=== PATIENT | male | born 1935 | race Caucasian/White ===

== ENCOUNTER 2016-10-17 19:50 | Emergency (ER) | payer MEDICARE ==
[~2016-10-17] VITALS: Ht 162.6 cm; Wt 75.0 kg
[2016-10-17 20:16] VITALS: BP 171/103; PULSE 67; RESP 20; TEMP 99.2; O2SAT 95
[2016-10-17 22:45] LABS: BLOOD, URINE TRACE (NEG); GLUCOSE,URINE NEG (NEG); KETONE, URINE NEG (NEG); NITRITE,URINE NEG (NEG)
[2016-10-17 22:46] LABS: URINE COLOR YELLOW (YELLW/STRAW)
[2016-10-17 22:49] LABS: COMMENT (UR) CULT NOT INDICATED; CULTURE IF INDICATED CULT NOT INDICATED; RBC, URINE 0-3 /hpf (0-3); SQUAMOUS EPITHELIAL CELL URINE 0-5 /hpf (0-5); WBC, URINE 0-2 /hpf (0-5)
--- NOTE | 2016-10-17 23:22 | RADHPO ---
EXAM DATE/TIME: 10/17/2016 22:39 [facility] COMPARISON: No previous studies available for comparison. INDICATIONS : Trauma. Fall. Neck pain. RADIATION DOSE: 26.50 CTDIvol (mGy) MEDICAL HISTORY : None SURGICAL HISTORY : None. ENCOUNTER: Initial ACUITY: 1 day PAIN SCALE: 4/10 LOCATION: Bilateral neck TECHNIQUE: Volumetric scanning of the cervical spine was performed. Multiplanar reconstructions in the sagittal, coronal and oblique axial planes were performed. Using automated exposure control and adjustment o f the mA and/or kV according to patient size, radiation dose was kept as low as reasonably achievable to obtain optimal diagnostic quality images. FINDINGS: Sagittal and coronal reconstruction show multilevel degenerative disc disease with loss of disc heigh t just about every cervical level, most severe from C4-5 through C7-T1 with [id number]-[id number] articulation at C6-7. Associated uncovertebral ridging most prominent anteriorly at C4-5 and C5-6. Moderate grad e 1 anterolisthesis of C3 on C4 and C7 on T1 probably due to facet degeneration. Despite degenerative changes, the spinal canal is adequate with some uncovertebral ridging at C4-5 encroaching on the int ervertebral space. No acute fracture. Detailed axial images as follows: . C2-C3: Right facet hypertrophy. Spinal canal and neural foramina are patent. C3-C4: Bilateral facet hypertrophy. Spinal canal and neural foramina are patent. C4-C5: Uncovertebral ridging with a right central/paramidline spur encroaching on the anterior epidural spac e. Spinal canal and neural foramina remain patent C5-C6: Uncovertebral ridging the spinal canal and neural foramina are adequate C6-C7: Uncovertebral ridging but the spinal canal and neural foramina remain adequate C7-T1: The bony spinal canal is normal in size. No evidence of disc bulge or herniation. The neural forami na are bilaterally patent. CONCLUSION: 1. Multilevel degenerative disc disease with loss of disc height and free cervical level. This is mos t severe from C4-5 inferiorly with ohhi-wa-cjmn articulation at C6-7.2. Grade 1 anterolisthesis of C3 on 4 and C7 on T1 probably due to facet degeneration. 3. Despite the degenerative disc disease and multilevel facet hypertrophy, the spinal canal and neura l foramina appeared adequate at all cervical levels with a central/right paracentral disc spur at C4- 5 encroaching on the anterior epidural space. 4. No fracture Andres Ncihole MD on October 17, 2016 at 23:12 Board Certified Radiologist. This report was verified electronically.
--- NOTE | 2016-10-17 23:24 | RADHPO ---
EXAM DATE/TIME: 10/17/2016 22:39 [facility] COMPARISON: No previous studies available for comparison. INDICATIONS : Trauma. Fall. Laceration back of head. RADIATION DOSE: 57.97 CTDIvol (mGy) MEDICAL HISTORY : None SURGICAL HISTORY : Ear implants. ENCOUNTER: Initial ACUITY: 1 day PAIN SCALE: 4/10 LOCATION: occipital TECHNIQUE: Multiple contiguous axial images were obtained of the head. Using automated exposure control and adj ustment of the mA and/or kV according to patient size, radiation dose was kept as low as reasonably a chievable to obtain optimal diagnostic quality images. FINDINGS: CEREBRUM: The ventricles are normal for age. Anatomic detail in the posterior temporal and parietal lobes is s omewhat limited due to the morning artifact from the bilateral cochlear implants. No evidence of mid line shift, mass lesion, hemorrhage or acute infarction. No extra-axial fluid collections are seen. POSTERIOR FOSSA: The cerebellum and brainstem are intact. The 4th ventricle is midline. The cerebellopontine angle i s unremarkable. EXTRACRANIAL: The visualized portion of the orbits is intact. SKULL: The calvaria is intact. No evidence of skull fracture. There appear to be bilateral cochlear implant s. CONCLUSION: 1. Bilateral cochlear implants do produce some beam hardening artifact in the posterior temporal and parietal lobes. 2. Otherwise, nothing acute Andres Nichole MD on October 17, 2016 at 23:21 Board Certified Radiologist. This report was verified electronically.
--- NOTE | 2016-10-17 23:30 | RADHPO ---
EXAM DATE/TIME: 10/17/2016 22:39 [facility] COMPARISON: No previous studies available for comparison. INDICATIONS : Trauma. Fall. RADIATION DOSE: 25.62 CTDIvol (mGy) MEDICAL HISTORY : None SURGICAL HISTORY : Ear implants. ENCOUNTER: Initial ACUITY: 1 day PAIN SCORE: 4/10 LOCATION: Bilateral facial TECHNIQUE: Volumetric scanning of the facial bones was performed. Using automated exposure control and adjustme nt of the mA and/or kV according to patient size, radiation dose was kept as low as reasonably achiev able to obtain optimal diagnostic quality images. FINDINGS: ORBITS: The orbital and infraorbital osseous structures are intact. The retroconal structures have a normal configuration. No radiopaque foreign bodies are seen. NASAL BONE: The nasal bone and maxillary spine are intact ZYGOMATIC ARCHES: Symmetric without evidence of fracture. SINUSES: Minimal mucoperiosteal thickening along the inferior aspect of both maxillary antra. NASAL CAVITY: The nasal septum is intact and midline. The lacrimal ducts are intact. SOFT TISSUES: No radiopaque foreign bodies seen. No soft-tissue swelling is seen. INTRACRANIAL: No intracranial air seen. CRIBIFORM PLATE: Grossly intact. CONCLUSION: 1. Minimal chronic sinus disease in the inferior aspect of both maxillary antra. 2. No acute osseous injury. Andres Nichole MD on October 17, 2016 at 23:27 Board Certified Radiologist. This report was verified electronically.
--- NOTE | 2016-10-17 23:55 | PD ---
HPI Chief Complaint: Fall Time Seen by Provider: 22:18 Travel History International Travel<30 days: No Contact w/Intl Traveler<30days: No Traveled to known affect area: No History of Present Illness HPI 81-year-old male presents to the emergency department by private transportation after falling while stepping out of his friend's semi-truck tractor-trailer. Patient was climbing out of the tractor-trailer off of 2 steps when he lost his balance and fell backwards. Patient did to his head. No witnessed loss of consciousness the patient appeared dazed and had transient amnesia of the event where he had to be informed that he was and [place]. Patient also contused his face. Patient denies headache at this time is aware if he is wary is what happened and how it happened he recalls climbing down off the truck and losing his balance and falling and recalls that he dislodged one of his cochlear implants and has been his self since the event. Patient sustained abrasion to the nose and abrasion to the left lower leg and a contusion to the posterior scalp. This was a witnessed event. Friend who was with him is at the bedside. Patient does not take any blood thinning agents. Patient denies any headache visual disturbance neck pain back pain chest pain rib pain abdominal pain pelvic pain upper or lower extremity pain. Patient's had no numbness tingling or weakness in the arms or legs no ataxia of gait. There is been no nausea no vomiting. PFSH Past Medical History Narrative Medical Cochlear implants; no tobacco use; nursing notes reviewed Medical History: Denies Significant Hx Diminished Hearing: No Tetanus Vaccination: Unknown Influenza Vaccination: No ?: Not Past Surgical History Surgical History: No Previous Surgery Social History Alcohol Use: Yes (OCC) Tobacco Use: No Substance Use: No Allergies-Medications (Allergen,Severity, Reaction): Coded Allergies: No Known Allergies (Unverified , 10/17/16) Narrative Medication Denies medications; no blood thinning agents. Review of Systems Except as stated in HPI: all other systems reviewed are Neg General / Constitutional: No: Fever, Chills Eyes: No: Visual changes HENT: No: Headaches, Neck Pain Cardiovascular: No: Chest Pain or Discomfort Respiratory: No: Shortness of Breath Gastrointestinal: No: Nausea, Vomiting, Abdominal Pain Genitourinary: No: Flank Pain Musculoskeletal: No: Myalgias, Arthralgias Skin: No Rash Neurologic: Positive: Change in Mentation (transient amnesia), No: Weakness, Dizziness, Syncope, Focal Abnormalities, Coordination Problem, Ataxia, Headache , Slurred Speech, Paresthesia, Incontinence, Seizures, Sensory Disturbance Psychiatric: No: Anxiety, Depression Endocrine: No: Heat Intolerance Hematologic/Lymphatic: No: Easy Bruising Physical Exam Narrative GENERAL: Well-developed well-nourished male in no acute distress no respiratory distress SKIN: Warm and dry. HEAD: Atraumatic. Normocephalic. Scalp soft tissue swelling superficial abrasion no laceration no puncture wound no bony abnormality EYES: Pupils equal and round. Extraocular muscles intact. No scleral icterus. No injection or drainage. ENT: No nasal bleeding or discharge. Mucous membranes pink and moist. NECK: Trachea midline. No JVD. No midline tenderness to direct palpation along the cervical spine no bony step-off. CARDIOVASCULAR: Regular rate and rhythm. Chest wall: Nontender to direct palpation no ecchymosis no abrasion no bony tenderness or crepitus RESPIRATORY: No accessory muscle use. Clear to auscultation. Breath sounds equal bilaterally. GASTROINTESTINAL: Abdomen soft, non-tender, nondistended. Hepatic and splenic margins not palpable. MUSCULOSKELETAL: Extremities without clubbing, cyanosis, or edema. No obvious deformities. NEUROLOGICAL: Awake and alert. No obvious cranial nerve deficits. Motor grossly within normal limits. Five out of 5 muscle strength in the arms and legs. No pronator drift. No limb ataxia. Sensory exam intact. Normal speech. PSYCHIATRIC: Appropriate mood and affect; insight and judgment normal. Data Data Last Documented VS Vital Signs Date Time Temp Pulse Resp B/P Pulse Ox O2 Delivery O2 Flow Rate FiO2 10/18/16 00:15 18 95 Room Air 10/18/16 00:15 97.9 62 160/[address] Brain W/O Iv Contrast(Rout) (10/17/16 ) Ct Cerv Spine W/O Contrast (10/17/16 ) Ct Facial Bones W/O Iv Cont (10/17/16 ) Urinalysis - C+S If Indicated (10/17/16 22:18) Wound Care (10/17/16 22:18) Ice / Cold Pack PRN (10/17/16 22:18) Tetanus/Diphtheria Tox Adult (Tetanus/Di (10/18/16 00:00) Acetaminophen (Tylenol) (10/18/16 00:00) Labs Laboratory Tests Test 10/17/16 22:30 Urine Color YELLOW Urine Turbidity CLEAR Urine pH 6.0 Urine Specific [place] 1.019 Urine Protein NEG mg/dL Urine Glucose (UA) NEG mg/dL Urine Ketones NEG mg/dL Urine Occult Blood TRACE Urine Nitrite NEG Urine Bilirubin NEG Urine Leukocyte Esterase NEG Urine RBC 0-3 /hpf Urine WBC 0-2 /hpf Urine Squamous Epithelial 0-5 /hpf Cells Microscopic Urinalysis Comment CULT NOT INDICATED MDM Medical Decision Making Medical Screen Exam Complete: Yes Emergency Medical Condition: Yes Medical Record Reviewed: Yes Interpretation(s) Last Impressions Maxillofacial CT 10/17/16 0000 Signed Impressions: Service Date/Time: Monday, October 17, 2016 22:39 - CONCLUSION: 1. Minimal chronic sinus disease in the inferior aspect of both maxillary antra. 2. No acute osseous injury. Andres Nichole MD Head CT 10/17/16 0000 Signed Impressions: Service Date/Time: Monday, October 17, 2016 22:39 - CONCLUSION: 1. Bilateral cochlear implants do produce some beam hardening artifact in the posterior temporal and parietal lobes. 2. Otherwise, nothing acute Andres Nichole MD Cervical Spine CT 10/17/16 0000 Signed Impressions: Service Date/Time: Monday, October 17, 2016 22:39 - CONCLUSION: 1. Multilevel degenerative disc disease with loss of disc height and free cervical level. This is most severe from C4-5 inferiorly with [id number]-evfv articulation at C6-7. 2. Grade 1 anterolisthesis of C3 on 4 and C7 on T1 probably due to facet degeneration. 3. Despite the degenerative disc disease and multilevel facet hypertrophy, the spinal canal and neural foramina appeared adequate at all cervical levels with a central/right paracentral disc spur at C4-5 encroaching on the anterior epidural space. 4. No fracture Andres Nichole MD Differential Diagnosis Minor closed head injury, skull fracture, and cranial bleed, abrasion, contusion , fracturefacialcervical spine, cord compression Narrative Course Imaging studies ordered ice pack applied wounds cleansed Tetanus status updated Imaging studies revealed no acute abnormality chronic changes are noted GCS remains 15 patient is stable for outpatient management Diagnosis Primary Impression: Closed head injury with concussion Qualified Code: S06.0X0A - Closed head injury with concussion, without loss of consciousness, initial encounter Additional Impressions: Contusion of scalp, initial encounter Facial contusion Qualified Code: S00.83XA - Facial contusion, initial encounter Leg abrasion Qualified Code: S80.812A - Leg abrasion, left, initial encounter Referrals: Primary Care Physician 2 days Patient Instructions: General Instructions Additional Instructions: Keep abrasions clean and dry follow wound care directions Follow head injury precautions 24 hours May use acetaminophen/Tylenol as needed for discomfort or for fever 100.4F or greater May use ibuprofen/Advil/Motrin per package directions every 6-8 hours as needed for pain associated inflammation for fever 100.4F or greater Use ice intermittently for first 12-24 hours to areas of soft tissue swelling Return to the emergency department for any concerns or change in condition No contact sports/activities or motorcycle riding for greater than 5 days or until evaluated and cleared by your primary care provider Med/Other Pt SpecificInfo: Prescription(s) given Disposition: 01 DISCHARGE HOME Condition: Stable Evelyn Rosas MD Oct 17, 2016 23:55
[2016-10-18] MEDS ORDERED: TETANUS/DIPHTHERIA TOXOID ADULT 0.5 ML VIAL IM ONE
[2016-10-18] MEDS ORDERED: ACETAMINOPHEN 325 MG TAB PO ONE
[2016-10-18 00:15] VITALS: BP 160/78; PULSE 62; RESP 18; TEMP 97.9; O2SAT 95
== END 2016-10-18 00:55 | disposition home or self-care (01) ==
LOC: PHED 19:50
DX: S06.0X0A Concussion without loss of consciousness, initial encounter (principal); S09.90XA Unspecified injury of head, initial encounter; S80.819A Abrasion, unspecified lower leg, initial encounter; S00.83XA Contusion of other part of head, initial encounter; S00.03XA Contusion of scalp, initial encounter; W17.89XA Other fall from one level to another, initial encounter; V68.4XXA Person boarding or alighting a heavy transport vehicle injured in noncollision transport accident, initial encounter; Y93.89 Activity, other specified; Y92.89 Other specified places as the place of occurrence of the external cause; Y99.8 Other external cause status
CPT/HCPCS: 70450; 70486; 72125; 81001; 90471; 90714